=== PATIENT | female | born 1975 | race Caucasian/White ===

== ENCOUNTER 2019-01-02 12:47 | Emergency (ER) | payer MEDICAID, OTHER ==
[~2019-01-02] VITALS: Ht 167.6 cm; Wt 83.5 kg
[2019-01-02 13:02] VITALS: BP 126/80
== END 2019-01-02 15:03 | disposition home or self-care (01) ==
LOC: ER 12:47
DX: F20.9 Schizophrenia, unspecified (principal); Z76.0 Encounter for issue of repeat prescription